=== PATIENT | male | born 1945 | race Caucasian/White ===

== ENCOUNTER 2016-03-04 12:12 | Inpatient (IN) | payer OTHER ==
[~2016-03-04] VITALS: Ht 167.6 cm; Wt 98.9 kg
[2016-03-04] VITALS (25 sets, daily range): BP systolic 82–130; BP diastolic 40–90
--- NOTE | ~2016-03-04 | H ---
[facility] [place] [address] HISTORY AND PHYSICAL Name: VICKY TRIPLETT Richard Room #: 240-P ADM IN M.R.#: [id number] Admission: 03/04/16 Attend Phys: Katie Abbott Discharge: Date of : 45 Report #: [id number] THIS REPORT FOR: //name// CC: Bill Abbott DATE OF SERVICE: 03/04/2016 TYPE OF DICTATION: Admission H and P. After [id number] encounter, I did see the patient on 03/04/2016. CHIEF COMPLAINT: Weakness. HISTORY OF PRESENT ILLNESS: This is a 70-year-old male who presented to [facility] with weakness. He had a fall today. The patient was evaluated, where he missed 2 of his dialysis sessions recently, and he was found to have hypotension, but no signs or symptoms of sepsis. The patient told me that he has hypotension usually after the dialysis sessions and this is the chronic problem with him. Currently, the patient is in the ICU, has blood pressure of 90/44 and seems to be not symptomatic regarding this. The patient denies any chest pain, shortness of breath, fever, fatigue or nausea or vomiting. REVIEW OF SYSTEMS: Except that mentioned in the HPI, all other systems are negative. PAST MEDICAL HISTORY: Includes: 1. Anemia. 2. Insulin-dependent diabetes mellitus. 3. Hypothyroidism. 4. Hypertension. 5. Peripheral vascular disease. 6. Coronary artery disease. 7. End-stage renal disease, on hemodialysis. PAST SURGICAL HISTORY: Includes appendectomy, CABG, cholecystectomy and right hip surgery. FAMILY HISTORY: Noncontributory. SOCIAL HISTORY: Former smoker. Denies alcohol. Denies any illicit drugs. He lives with his spouse and family. PHYSICAL EXAMINATION: VITAL SIGNS: His temperature noted normal, pulse is 70, blood pressure 86/44 and respirations about 16. [facility] [address] [place] [address] HISTORY AND PHYSICAL Name: VICKY TRIPLETT Richard Room #: 240-P [facility] IN [facility].#: [id number] Admission: 03/04/16 Attend Phys: Katie Abbott Discharge: Date of : 45 Report #: [id number] GENERAL: He is alert, oriented, not in acute distress. HEENT: PERRLA. Intact extraocular muscles. No icterus. NECK: Supple. No JVD, no bruit, no thyroid. CHEST: Good air entry both sides. Normal respiratory effort. CARDIOVASCULAR: Regular rate and rhythm. No murmur, rub or gallop. ABDOMEN: Lax, nontender. Positive bowel sounds. No organomegaly appreciated. EXTREMITIES: No cyanosis, clubbing or edema. NEUROLOGIC: Cranial nerves 2-12 are intact. No focal neurological signs. SKIN: There is a skin ulcer on the right foot. LABORATORY DATA: We have some diagnostic data from [facility] with white count 15.7, hemoglobin 12.2, hematocrit 35.4 and platelets 319,000. Normal differential. Glucose 185, BUN 121, creatinine 14.7, sodium 132, potassium 4.5 and calcium 9. Normal LFTs. ASSESSMENT AND PLAN: 1. Hypotension. It seems to be a chronic problem, but his blood pressure is going down and up. So, we are going to monitor him in the ICU and get him some fluids. We will try not to overload him as he has end-stage renal disease. 2. End-stage renal disease, on hemodialysis. We are going to consult nephrology to see the patient. 3. Coronary artery disease. No chest pain. 4. Insulin-dependent diabetes mellitus. We are going to continue his home medicines of insulin and in the same time, we are going to check his blood sugars a.c. and at bedtime. 5. Right foot diabetic ulcer. We are going to consult wound team to address that. 6. Leukocytosis. There are no signs of infection, but I am going to check his urine and check his chest if there is any suspect of infection. We are going also to get blood cultures and urine cultures and try to treat any source of infection. <ELECTRONICALLY SIGNED> By: Ciaran Marroquin MD 03/05/16 0930 [id number] Ciaran Marroquin MD /nt
--- NOTE | ~2016-03-04 | HC ---
[facility] [place] [address] CONSULTATION Name: VICKY TRIPLETT Room #: 456-P [facility] IN ..#: [id number] Admission: 03/04/16 Attend Phys: Katie Abbott Discharge: 03/07/16 Date of : 45 Report #: [id number] THIS REPORT FOR: //name// CC: Bill Abbott DATE OF SERVICE: 03/04/2016 ATTENDING PHYSICIAN: Ciaran Marroquin M.D. REASON FOR CONSULTATION: End-stage renal disease and uremia. HISTORY OF PRESENT ILLNESS: A 70-year-old gentleman well known to our service from previous hospitalizations, who developed diarrhea 4 days ago and missed his last 2 dialysis treatments in [place]. He has been weak. He has had diarrhea, but no bloody stool, somewhat dizzy, came to the Emergency Room, was hypotensive, received 1 liter or more of IV fluids in [place] and has been transferred to this hospital for further evaluation and treatment. He has some lower abdominal pain, no bloody stool. Denies recent antibiotics. PAST MEDICAL HISTORY: End-stage renal disease, on dialysis for several years. He has peripheral vascular disease. He has had some peripheral vascular stenting, coronary artery disease with previous coronary bypass surgery. He had a right hip fracture requiring surgery last year at this hospital. He has had longstanding diabetes with retinopathy and peripheral neuropathy as well as his end-stage renal disease. FAMILY HISTORY: Positive for hypertension and coronary artery disease. SOCIAL HISTORY: He is retired. No current cigarettes or alcohol. REVIEW OF SYSTEMS: GENERAL: He has been feeling very weak. EYES: Vision, his eyes has been fairly bad. The left is little bit more than the right. ENT: Hearing okay and swallowing okay. No mouth sores or ulcers. ENDOCRINE: Positive for diabetes and thyroid disease, on replacement. RESPIRATORY: Short-winded with exertion. CARDIAC: No chest pain or lower extremity swelling. GASTROINTESTINAL: He has had the diarrhea, but no bloody stool, nausea or vomiting. GENITOURINARY: Making very little urine. No dysuria. NEUROLOGIC: Denies seizure, syncope or stroke. He has got numbness in his lower extremities consistent with peripheral neuropathy. SKELETAL: He denies arthritis. [facility] [address] [place] [address] CONSULTATION Name: VICKY TRIPLETT Room #: 456-P [facility] IN M.R.#: [id number] Admission: 03/04/16 Attend Phys: Katie Abbott Discharge: 03/07/16 Date of : 45 Report #: [id number] HOME MEDICATIONS: Ambien 5 mg at bedtime, aspirin 81 mg daily, carvedilol 25 mg b.i.d., furosemide 40 mg daily, lovastatin 20 mg daily, milk of magnesium p.r.n., MS Contin b.i.d., amlodipine 5 mg daily, insulin, pantoprazole 40 mg daily, Midodrine 10 mg before dialysis, Renagel, Renvela two tablets with meals, Synthroid 50 mcg daily, vitamin D3 1000 units daily. ALLERGIES: ALLERGIC TO SULFA. PHYSICAL EXAMINATION: VITAL SIGNS: This is an ill-appearing gentleman in no acute distress. SKIN: Somewhat poor turgor. SKELETAL: Well developed, well nourished. EYES: Extraocular movements are full. Vision is poor, left side is little bit more than right. Hearing intact. Mucous membranes are dry. NECK: Veins are flat. The neck is supple. CHEST: Clear to auscultation. HEART: Regular. ABDOMEN: Soft and nontender, without bruits, masses or organomegaly. Bowel sounds are present. EXTREMITIES: Show no peripheral edema. The feet are warm and dry. NEUROLOGIC: Numbness in the feet, generalized weakness. LABORATORY DATA: This is taken in the Emergency Room in [place]. Sodium 132, potassium 4.5, chloride 89, bicarbonate 13, creatinine 12.2, calcium 9, no phosphorus, albumin is 4.1. White blood count 15.7, hemoglobin 12.2, lactic acid was 2.1. ASSESSMENT AND PLAN: 1. Diarrhea with hypotension. He has had diarrhea. He has missed dialysis. He seems to be uremic. He is a little bit confused. He certainly is in need of dialysis. This will be ordered and performed this evening without any ultrafiltration. I will continue to give him a bit of IV fluids and bicarbonate because of his acidosis. 2. End-stage renal disease. 3. Diabetes mellitus with triopathy. 4. History of coronary bypass. 5. Diarrhea, could be clostridium difficile. We certainly will need to rule that out. 6. Previous hip fracture. 7. Peripheral arterial disease, status post stenting. <ELECTRONICALLY SIGNED> By: Thiago Ye MD 03/17/16 1126 [id number] Thiago Ye MD /nt
--- NOTE | ~2016-03-04 | D ---
[facility] [place] [address] [address] [place] [address] DISCHARGE SUMMARY Name: VICKY TRIPLETT Room #: 456-P [facility] IN M.R.#: [id number] Admission: 03/04/16 Attend Phys: Katie Abbott Discharge: Date of : 45 Report #: [id number] THIS REPORT FOR: //name// CC: Bill Abbott DATE OF SERVICE: 03/07/2016 TYPE OF DICTATION: Discharge summary. After [id number] encounter, I did see the patient and examined him on the day of discharge, 03/07/2016. DISCHARGE DIAGNOSES: 1. Hypotension. 2. Anemia. 3. Insulin-dependent diabetes mellitus. 4. Hypothyroidism. 5. Hypertension. 6. Peripheral vascular disease. 7. Coronary artery disease. 8. End-stage renal disease, on hemodialysis. DISCHARGE MEDICATIONS: See discharge summary. HOSPITAL COURSE: The patient was transferred from another hospital to our hospital secondary to hypotension and hemodialysis. The patient was admitted to the ICU for the hypotension, but he did not show any signs of sepsis or septic shock. Nephrology was consulted and they adjusted his blood pressure medicines and his blood pressure was getting in a good range. The patient had 2 dialysis since in the hospital and he was doing fine with that, and he is going to be discharged on the adjusted medicines now. I discussed that with him and he is agreeable and he is going home and to follow up with his own icu rn. <ELECTRONICALLY SIGNED> By: Ciaran Marroquin MD 03/07/16 1337 1121 [id number] [place] Marroquin MD /nt
[~2016-03-04 12:12] MED LIST: AMBIEN5 MG PO; ASPIRIN EC81 M1 PO; BISACODYL SUPP10 MG RECTAL; CARVEDILOL25 MG PO; CINNAMON PO; COLACE100 MG PO; DIPHENHIST25 M2 PO; ECHINACEA PLUS400 MG PO; ENOXAPARIN30 MG/0.1 SUBQ; ERYC250 MG PO; FEVERALL650 MG RECTAL; GABAPENTIN 100100 MG PO; GLAUCOMA DROPS OPHTHALMIC; HUMALIN N IJ; HUMALIN R IJ; HUMULIN N100 UNIT/1 SUBQ; HUMULINR100 SUBQ; HYDROCODON-ACE1 EAC8 PO; LANTUS; LASIX 40 MG TAB40 M1 PO; LEVOTHYROXINE0.05 MG PO; LISINOPRIL20 MG PO; LISINOPRIL40 MG PO; LOVASTAT20 PO; LUMIGAN2.5 M1 OP; MAG-AL PLUS SUS30 ML PO; MILK OF MA2400 MG/10 PO; MIRALAX17 GM PO; MS CONTIN15 MG PO; NORVASC 5 MG TAB5 MG PO; NOVOLIN N100 UNIT/3 SUBQ; NOVOLOG100 UNIT/1 SUBQ; PERCOCET PO; PLAVIX 75 MG TA75 M1 PO; POTASSIUM20 PO; PRINIVIL20 MG PO; PROTONIX40 M1 PO; RENO CAPS SOFTGE1 MG PO; RENVELA800 MG PO; SENNA8.6 MG PO; SPIRONOLACTONE25 MG PO; TYLENOL325 MG PO; UNICOMPLEX M TA1 TA1 PO; VITAMIN D31000 UNI2 PO; VITAMIN D3400 UNIT PO; ZUPLENZ4 MG PO; [UNRECOGNIZED DRUG - CODE] SUBQ
[2016-03-05] VITALS (32 sets, daily range): BP systolic 86–141; BP diastolic 34–64
[2016-03-05 05:23] LABS: HEMATOCRIT 28.6 % (42.0-52.0); HEMOGLOBIN 9.9 gm/dL (14.0-18.0); MCH 34.5 pg (26.0-34.0); MCHC 34.5 % (28.0-37.0); MCV 100.1 fL (80.0-100.0); RBC 2.85 mil/uL (4.50-6.00); RDW 13.9 % (10.5-14.5); WBC 9.6 thou/uL (4.0-11.0)
[2016-03-05 05:39] LABS: ALBUMIN 3.1 g/dL (3.4-5.0); CALCIUM 8.3 mg/dL (8.5-10.1); CREATININE 8.2 mg/dL (0.6-1.3); PHOSPHORUS 8.8 mg/dL (2.5-4.9); POTASSIUM 3.5 mmol/L (3.5-5.1)
[2016-03-06 04:01] VITALS: BP 102/46
[2016-03-06 05:59] LABS: ABSOLUTE NEUTROPHILS 4.3 thou/uL (1.4-8.2); BASOPHILS 0.2 % (0.0-2.0); EOSINOPHILS 0.4 % (0.0-3.0); HEMATOCRIT 28.3 % (42.0-52.0); HEMOGLOBIN 9.8 gm/dL (14.0-18.0); LYMPHOCYTES 17.1 % (24.0-44.0); MCH 34.8 pg (26.0-34.0); MCHC 34.8 % (28.0-37.0); MCV 100.1 fL (80.0-100.0); MONOCYTES 8.2 % (1.0-8.0); PLATELET COUNT 203 thou/uL (150-400); POLYS 74.1 % (36.0-66.0); RBC 2.83 mil/uL (4.50-6.00); RDW 13.8 % (10.5-14.5); WBC 5.8 thou/uL (4.0-11.0)
[2016-03-06 06:22] LABS: MANUAL DIFF NO
[2016-03-06 06:30] LABS: ALBUMIN 2.8 g/dL (3.4-5.0); CALCIUM 8.2 mg/dL (8.5-10.1); PHOSPHORUS 7.8 mg/dL (2.5-4.9); POTASSIUM 3.2 mmol/L (3.5-5.1)
[2016-03-06 07:55] VITALS: BP 116/35
[2016-03-06 11:50] VITALS: BP 106/33
[2016-03-06 16:21] VITALS: BP 113/27
[2016-03-06 20:00] VITALS: BP 98/46
[2016-03-07 04:00] VITALS: BP 92/43
[2016-03-07 06:50] LABS: ABSOLUTE NEUTROPHILS 3.9 thou/uL (1.4-8.2); BASOPHILS 0.5 % (0.0-2.0); EOSINOPHILS 5.4 % (0.0-3.0); HEMATOCRIT 28.3 % (42.0-52.0); HEMOGLOBIN 9.9 gm/dL (14.0-18.0); LYMPHOCYTES 25.1 % (24.0-44.0); MCH 35.3 pg (26.0-34.0); MCHC 35.1 % (28.0-37.0); MCV 100.5 fL (80.0-100.0); MONOCYTES 10.3 % (1.0-8.0); PLATELET COUNT 196 thou/uL (150-400); POLYS 58.7 % (36.0-66.0); RBC 2.82 mil/uL (4.50-6.00); RDW 13.6 % (10.5-14.5); WBC 6.6 thou/uL (4.0-11.0)
[2016-03-07 06:51] LABS: MANUAL DIFF NO
[2016-03-07 07:19] LABS: CALCIUM 8.5 mg/dL (8.5-10.1); CREATININE 11.4 mg/dL (0.6-1.3); PHOSPHORUS 7.7 mg/dL (2.5-4.9); POTASSIUM 3.4 mmol/L (3.5-5.1)
[2016-03-07] MEDS ORDERED: LEVOTHYROXINE0.05 MG PO (11:24)
[2016-03-07] MEDS ORDERED: CARVEDILOL12.5 MG PO (11:24)
[2016-03-07 11:33] VITALS: BP 112/57
[2016-03-07 13:10] VITALS: BP 112/57
[2016-03-07 16:25] VITALS: BP 112/57
== END 2016-03-07 17:00 | disposition home or self-care (01) | DRG 314 ==
LOC: ICU 12:12 → 4W 13:29 → ICU 13:29 → 4W 03-05 16:50
PROVIDERS: Hospitalist; Internal Medicine Nephrology
PROC: 5A1D60Z (ICD-10-PCS; principal; 2016-03-04)
DX: I95.9 Hypotension, unspecified (principal); N18.6 End stage renal disease; I12.0 Hypertensive chronic kidney disease with stage 5 chronic kidney disease or end stage renal disease; L97.419 Non-pressure chronic ulcer of right heel and midfoot with unspecified severity; E46 Unspecified protein-calorie malnutrition; E11.621 Type 2 diabetes mellitus with foot ulcer; E11.51 Type 2 diabetes mellitus with diabetic peripheral angiopathy without gangrene; Z96.641 Presence of right artificial hip joint; E11.42 Type 2 diabetes mellitus with diabetic polyneuropathy; R19.7 Diarrhea, unspecified; E11.22 Type 2 diabetes mellitus with diabetic chronic kidney disease; D64.9 Anemia, unspecified; E03.9 Hypothyroidism, unspecified; D72.829 Elevated white blood cell count, unspecified; I25.10 Atherosclerotic heart disease of native coronary artery without angina pectoris; Z95.1 Presence of aortocoronary bypass graft; Z87.81 Personal history of (healed) traumatic fracture; Z95.5 Presence of coronary angioplasty implant and graft; Z99.2 Dependence on renal dialysis; Z79.4 Long term (current) use of insulin; Z98.890 Other specified postprocedural states; Z87.891 Personal history of nicotine dependence; Z68.35 Body mass index [BMI] 35.0-35.9, adult; Z82.49 Family history of ischemic heart disease and other diseases of the circulatory system
CPT/HCPCS: 10045; 10078; 32100